=== PATIENT | female | born 1970 | race Caucasian/White ===

== ENCOUNTER → 2017-12-12 | Outpatient (CLI) | payer OTHER ==
[~2017-12-12] MED LIST: CENTRUM SILVER1 EAC4 PO; ESCITALOPRAM OX20 MG PO; HYDROCODONE-ACE15 ML PO; LEVOTHYROXINE137 MCG PO; PROMETHAZINE12.5 M1 PO; ZOFRAN ODT4 M1 PO
== END ==
LOC: RAD 08:27
DX: K44.9 Diaphragmatic hernia without obstruction or gangrene (principal); K31.4 Gastric diverticulum

== ENCOUNTER 2018-01-15 05:20 | Inpatient (IN) | payer OTHER ==
[~2018-01-15] VITALS: Ht 170.2 cm; Wt 72.6 kg
--- NOTE | ~2018-01-15 | S ---
[facility] [place] [address] SURGICAL PATH RPT PROCEDURE Name: LOC MURGUIA Room #: 410-P DIS IN M.R.#: [id number] Admission: 01/15/18 Date of : 68 Discharge: 01/16/18 Report #: [id number] Path Case #: [id number] PATHOLOGY REPORT COLLECTION DATE: 01/15/2018 RECEIVED DATE: 01/15/2018 SUBMITTING PHYS: Dr. Roxana De La Cruz OTHER PHYS: Dr. Darlene Rodriguez SPECIMEN(S) RECEIVED: A.Gastric rescetion with diverticulum * * * * * * * * * * * * FINAL DIAGNOSIS: Stomach, partial stomach with diverticulum, partial gastrectomy: - Mild chronic gastritis. - Moderately congested vessels within submucosa. - Negative for heterotopic mucosa, dysplasia or malignancy. (IUV:db; 01/16/2018) PATHOLOGIST: Helga Messina M.D. REPORT ELECTRONICALLY SIGNED BY: Helga Messina M.D. DATE/TIME: 01/16/2018 16:17 * * * * * * * * * * * * GROSS PATHOLOGY: The specimen is received in formalin, labeled "Loc Murguia, partial gastrectomy with diverticulum," and consists of a partial gastrectomy specimen measuring 6.0 x 4.2 x 1.8 cm that is closed with a line of harvey. The serosal surface is purple-pink and smooth. Sectioning reveals a pink-hicks mucosa with no polyps or mass lesions. A well-formed diverticulum is not present. Supervisor [employer] Point [employer] sections are submitted in cassettes A1-A3. (SDY; 01/15/2018) CLINICAL HISTORY: Hiatal hernia, gastric diverticulum INITIAL CPT CODE(S): A; 42785 Professional services performed by [facility] at [facility] [address] , [place] [address] Technical [facility] by [facility] at [address] [place] [address] [address] [place] [address] SURGICAL PATH RPT PROCEDURE Name: LOC MURGUIA Brant Room #: 410-P [facility] IN ..#: [id number] Admission: 01/15/18 Date of : 68 Discharge: 01/16/18 Report #: [id number] Path Case #: [id number] [place] [address]. [facility] [address] [place] [address] PHONE: [phone] DIRECTOR: Franko Claros M.D. * * * END OF REPORT * * *
--- NOTE | ~2018-01-15 | O ---
[facility] [place] [address] OPERATIVE REPORT Name: LOC MCCALL Room #: 410-P [facility] IN M.R.#: [id number] Admission: 01/15/18 Attend Phys: Roxana De La Cruz MD, Discharge: 01/16/18 Date of : 68 Report #: [id number] THIS REPORT FOR: //name// CC: Darlene De La Cruz DATE OF SERVICE: 01/15/2018 PREOPERATIVE DIAGNOSES: 1. Hiatal hernia. 2. Gastric diverticulum. 3. Gastroesophageal reflux disease. POSTOPERATIVE DIAGNOSES: 1. Type 3 paraesophageal hernia. 2. Gastric diverticulum. 3. Gastroesophageal reflux disease without esophagitis. PROCEDURES PERFORMED: 1. Laparoscopic repair of a type 3 paraesophageal hernia with cruroplasty and biomesh buttressing. 2. Laparoscopic partial gastrectomy. 3. A thorough esophagogastroduodenoscopy (EGD). SURGEON: Roxana De La Cruz M.D. RAT EXTERMINATOR SURGEON: Theo Hercules M.D. ANESTHESIA: General endotracheal anesthesia. ESTIMATED BLOOD LOSS: Minimal (less than 5 mL). COMPLICATIONS: None appreciated. SPECIMENS: Partial gastrectomy resection specimen to pathology. INDICATIONS: The patient is a 47-year-old female who has a history of GERD as well as necrotic food regurgitation and has been found to have a hiatal hernia and a narrow based gastric diverticulum on upper endoscopy. The patient's GERD symptoms are controlled with tlrw-rkb-yxaowyd meds, but she is unhappy with regurgitation of solid necrotic food that she has ingested days prior that is due to her gastric diverticulum trapping food within it before expelling it into the gastric lumen and causing her to vomit. The patient has undergone a thorough preoperative workup and as such presents today for definitive surgical management with intraoperative findings of a type 3 paraesophageal hernia containing both the gastroesophageal juncture as well as a [facility] [address] [place] [address] OPERATIVE REPORT Name: LOC MCCALL Room #: 410-P [facility] IN [facility]#: [id number] Admission: 01/15/18 Attend Phys: Roxana De La Cruz MD, Discharge: 01/16/18 Date of : 68 Report #: [id number] portion of the fundus of the stomach within the distal mediastinum consistent with a type 3 paraesophageal hernia that required definitive surgical management in addition to the partial gastrectomy for her gastric diverticulum. DESCRIPTION OF PROCEDURE: After explaining the risks, benefits and alternatives of the procedure with the patient in detail in the preoperative holding area and obtaining written consent, the patient was brought to the Operating Room and placed supine on the operating room table. After conducting a thorough timeout procedure and verifying correct patient and procedure, the patient was given general endotracheal anesthesia. Once adequate anesthesia was obtained, her SCDs were hooked up to the pneumatic compression device and she was given a preoperative dose of antibiotics in line with the SCIP protocol. The patient's abdomen was prepped and draped in the standard surgical sterile fashion after positioning her in the low lithotomy position with her legs in the Yellofin stirrups. The procedure was begun by using the SkillSlateinon upper endoscope to intubate the oropharynx, which was traversed down into the gastric lumen. This was advanced into the duodenum where slow careful withdrawal of the EGD scope showed no evidence of duodenitis, gastritis, esophagitis, mass lesions or ulcerations. We did identify the narrow based gastric diverticulum near the fundus of the stomach. In addition, there was evidence of a hiatal hernia. The scope was straightened out with its tip at the level of the pylorus where it was taped into position and I proceeded to sterilely scrub and enter the operative field. 5 mL of 0.5% Marcaine with epinephrine were used to anesthetize the skin in the right upper quadrant, midclavicular line in a subcostal location. A #15-bladed scalpel was used to create a small skin radha at this location. A 5-mm Visiport was placed over 0-degree 5-mm laparoscope and was introduced through this incision site. Once intra-abdominal placement was verified visually, the obturator for the trocar and laparoscope were both removed and the abdomen was insufflated to 15 mmHg using carbon dioxide gas. The laparoscope was changed to a 5-mm 30-degree laparoscope, which was reintroduced through this trocar. The entire abdomen was evaluated to ensure no injury upon entry. I now placed three additional trocars in the left mid abdomen. A 5-mm port was placed 2 cm cephalad to the umbilicus and 2 cm to the patient's left, a 12-mm port was placed 5 cm lateral to that, and an additional 5-mm port was placed in the extreme left lateral flank. All three additional trocars were placed under direct vision after anesthetizing the skin at each location with 5 mL of 0.5% Marcaine with epinephrine and I had created appropriately sized skin nicks using a #15-bladed scalpel. Laparoscope was removed and changed to the 5-mm port just to the left of the patient's umbilicus and she was placed in steep reverse Trendelenburg position. I now anesthetized the skin in the subxiphoid location with 5 mL of 0.5% Marcaine with epinephrine. I created a small skin radha using #15-bladed scalpel. I maneuvered the Neli liver retractor through this defect where it was positioned up under the left lobe of the liver and was held up against the posterior aspect in the anterior abdominal wall and was fixed into position using the Iron Vehicle Monitor Technician device to stabilize it. We now had complete access to [facility] [address] [place] [address] OPERATIVE REPORT Name: STEFANYLOC M Room #: 410-P [facility] IN ..#: [id number] Admission: 01/15/18 Attend Phys: Roxana De La Cruz MD, Discharge: 01/16/18 Date of : 68 Report #: [id number] the stomach and hiatal regions and saw evidence of the type 3 paraesophageal hernia with both the gastroesophageal juncture as well as a portion of the fundus of the stomach within the distal mediastinum. The patient's fundus did appear very saccular near the medial aspect of the spleen. At this juncture, we proceeded to dress the paraesophageal hernia first. Gentle manual traction was placed on the stomach in an inferior direction and the Harmonic scalpel was used to open the Pars flaccida to identify the base of the right jacqui. I dissected anteriorly up the right jacqui with Harmonic scalpel for hemostasis. The stomach was then retracted to the patient's right side, we identified the base of the left jacqui and dissected anteriorly up the left jacqui in similar fashion. The stomach was then normalized and I made a window in the retroesophageal space from the patient's right to left sides using a laparoscopic grasper. I was able to place a Henderson drain into the abdomen, which was then pulled through this retroesophageal space and the tails were mated anteriorly and an 0 PDS Endoloop was used to secure them in place. We now applied inferior traction on the Henderson drain, which allowed me to maintain reduction into the abdomen and I performed an extensive mediastinal dissection taking down all adhesions in the mediastinum as far cephalad as possible. There were attempt to cause retraction of the stomach and esophageal tissues back up in the mediastinum. At the completion of the extensive mediastinal dissection, we had 3 cm of intraabdominal esophagus evident. I now proceeded to repair the hiatal defect from the paraesophageal hernia using several sutures of 0 Surgidac on the EndoStitch device placed posteriorly and 1 placed anteriorly to bring the crural closure to where it was snugged, but not with undue tightness to the esophagus itself. Photodocumentation suture repair was taken and provided to the patient and the permanent medical record. Now that we recreated the slit valve aspect of the lower esophageal sphincter complex with the crural repair, I selected a piece of Miromesh biologic mesh that measured 6 x 8 cm in dimension. After appropriate hydration, a U-shaped notch was cut out of it and it was entered into the abdomen through the 12 mm port. This was maneuvered through the retroesophageal space where it was anchored to the diaphragm using sutures of 0 Surgidac on the EndoStitch device as well as 10 mL of Tisseel on the Duplospray device. The Tisseel was utilized by folding the corners of the mesh down and spraying the Tisseel directly on the diaphragm before replacing the mesh into position being careful not to occlude the corners of the mesh as it revascularize from the periphery. Now, the mesh was appropriately positioned and we were happy with our crural repair with biologic mesh buttressing and had taken photodocumentation of all the above. We turned our attention to the partial gastrectomy aspect of the procedure. I proceeded to take down the short gastric arteries staying at least a cm away from the edge of the stomach using the Harmonic scalpel from the inferior tip of the spleen cephalad. The gastric diverticulum was narrow based and saccular, tethered intimately above the spleen on the medial aspect caught between the spleen and the diaphragm. Through mobilizing the stomach in this fashion, I was able to take down all these adhesions that had the gastric diverticulum secured in place and we now had mobilization of the diverticulum [facility] [address] [place] [address] OPERATIVE REPORT Name: LOC MCCALL Room #: 410-P [facility] IN .R.#: [id number] Admission: 01/15/18 Attend Phys: Roxana De La Cruz MD, Discharge: 01/16/18 Date of : 68 Report #: [id number] itself. I now selected the [place] 60 mm stapler with a green load and using Kenney's Trinity-Strip buttressing material placed over it and utilized 2 successive firings to transect the gastric diverticulum, leaving a perfectly rounded contour to the greater curvature of the stomach. Once resected, this was removed via the 12 mm fascial incision. I proceeded to close the 12 mm fascial incision under direct vision using 0 PDS suture on a Dariel-Marcello suture passer device. This was tied down under direct vision. I now utilized 10 mL of Tisseel on the [employer] device to coat the entirety of the staple line with fibrin glue. The EGD scope, which was within the gastric lumen was now used to retroflex and we saw no evidence of any further diverticulum as expected. The scope was straightened out and used to gently insufflate the stomach and normal saline was instilled in the upper abdomen and we performed a leak test, which was negative. No bubbling was seen whatsoever. Normal saline in the abdomen was suctioned out and it ran clear throughout. The EGD scope was used to desufflate the stomach, was removed via the oropharynx, passed off the field. The Neli liver retractor was removed and the liver was healthy and uninjured. The abdomen was fully desufflated. All remaining trocars removed under direct vision. A 4-0 Monocryl was used in a standard subcuticular fashion for all skin incisions and Dermabond glue was applied to all skin wounds. At the end of the procedure, all instrument, needle and sponge counts were correct. The patient tolerated the procedure without incident, was awakened in the operating room and transitioned to the recovery room in stable condition with no apparent complications. <ELECTRONICALLY SIGNED> By: Roxana De La Cruz MD, FACS 01/19/18 1113 [id number] Roxana De La Cruz MD, FACS /nt
[~2018-01-15 05:20] MED LIST changes: -HYDROCODONE-ACE15 ML PO; -ZOFRAN ODT4 M1 PO
[2018-01-15 08:22] VITALS: BP 127/72
[2018-01-15] MEDS ORDERED: ZOFRAN ODT4 M1 PO (11:59)
[2018-01-15] MEDS ORDERED: HYDROCODONE-ACE15 ML PO (11:59)
[2018-01-15 15:15] VITALS: BP 109/65
[2018-01-15 15:30] VITALS: BP 111/68
[2018-01-15 16:00] VITALS: BP 116/66
[2018-01-15 21:06] VITALS: BP 116/67
[2018-01-16 05:48] VITALS: BP 106/57
[2018-01-16 06:24] LABS: CALCIUM 8.1 mg/dL (8.5-10.1); CREATININE 1.1 mg/dL (0.6-1.0); POTASSIUM 4.3 mmol/L (3.5-5.1)
[2018-01-16 06:27] LABS: MCH 33.9 pg (26.0-34.0); MCHC 35.1 g/dL (28.0-37.0); MCV 96.3 fL (80.0-100.0); RBC 3.53 mil/uL (4.20-5.00); RDW 13.4 % (10.5-14.5)
[2018-01-16 09:57] VITALS: BP 104/62
[2018-01-16 12:46] VITALS: BP 104/62
== END 2018-01-16 13:40 | disposition home or self-care (01) | DRG 328 ==
LOC: TBA 05:20 → OR 05:20 → TBA 05:21 → OR 10:00 → EDSTATUS 10:01 → PRE 10:04 → EDSTATUS 14:14 → OR 14:42 → 4N 15:05
PROVIDERS: Surgery
PROC: 0BUT4JZ Supplement Diaphragm with Synthetic Substitute, Percutaneous Endoscopic Approach (ICD-10-PCS; principal; 2018-01-15)
PROC: 0DB64ZZ Excision of Stomach, Percutaneous Endoscopic Approach (ICD-10-PCS; 2018-01-15)
PROC: 0DJ08ZZ Inspection of Upper Intestinal Tract, Via Natural or Artificial Opening Endoscopic (ICD-10-PCS; 2018-01-15)
DX: K44.9 Diaphragmatic hernia without obstruction or gangrene (principal); K21.9 Gastro-esophageal reflux disease without esophagitis; K31.4 Gastric diverticulum; Z88.8 Allergy status to other drugs, medicaments and biological substances; Z28.21 Immunization not carried out because of patient refusal; Z90.49 Acquired absence of other specified parts of digestive tract; Z90.710 Acquired absence of both cervix and uterus; Z84.89 Family history of other specified conditions
CPT/HCPCS: 10790; 50010; 50101; 54109; 62110; 62900; 70005